=== PATIENT | female | born 1960 | race African-American/Black ===

== ENCOUNTER → 2019-10-20 | Outpatient (CLI) | payer OTHER ==
--- NOTE | 2019-10-20 09:19 | RAD ---
Examination: 1. Bilateral AP standing knees. 2. Left knee 2 views. 3. Pelvis and left hip 3 views INDICATION: Left hip and knee pain. FINDINGS: AP pelvis and bilateral hips show an intact pelvic ring with no fracture or dislocation. The frog-leg lateral views of the left hip are unremarkable. No fracture, significant degenerative change or femoral neck deformity. AP standing bilateral knees shows symmetric alignment with preserved joint spaces. Soft tissues are unremarkable. [place] and lateral views of the left knee show no joint effusion, fracture, significant degenerative change or bony erosive changes. The joint spaces are preserved. IMPRESSION: Negative pelvis and knee x-ray series. Electronically signed by: Emery Esquivel MD (10/20/2019 9:16 AM) [id number]
--- NOTE | 2019-10-20 09:19 | RAD ---
Examination: 1. Bilateral AP standing knees. 2. Left knee 2 views. 3. Pelvis and left hip 3 views INDICATION: Left hip and knee pain. FINDINGS: AP pelvis and bilateral hips show an intact pelvic ring with no fracture or dislocation. The frog-leg lateral views of the left hip are unremarkable. No fracture, significant degenerative change or femoral neck deformity. AP standing bilateral knees shows symmetric alignment with preserved joint spaces. Soft tissues are unremarkable. [place] and lateral views of the left knee show no joint effusion, fracture, significant degenerative change or bony erosive changes. The joint spaces are preserved. IMPRESSION: Negative pelvis and knee x-ray series. Electronically signed by: Emery Esquivel MD (10/20/2019 9:16 AM) [id number]
== END | disposition home or self-care (01) ==
LOC: RAD 08:53
PROVIDERS: ATTEND Physician Assistant
DX: M25.562 Pain in left knee (principal); M25.552 Pain in left hip
CPT/HCPCS: 73502; 73560; 73565